=== PATIENT | male | born 1960 | race Caucasian/White ===

== ENCOUNTER 2017-05-02 12:50 | Outpatient (CLI) | payer OTHER ==
--- OUTSIDE RECORDS SUMMARY | 2017-05-02 12:52 | XMS | Clinical Summary ---
:1960 Author Organization [facility] Address [address] [place] [address] Phone Care Team Providers Name Role Phone , Primary Care Provider Unavailable Allergies Not on File Current Medications Not on file Active Problems Not on file Social History Tobacco Use Types Packs/Day Years Used Date Never Assessed Sex Assigned at Date Recorded Not on file Last Filed Vital Signs Not on file Plan of Treatment Not on file Results Not on filefrom Last 3 Months
--- NOTE | 2017-05-02 15:22 | ULT ---
RENAL ULTRASOUND: HISTORY: Bladder cancer. FINDINGS: Real-time images of the right and left kidneys were performed. The right kidney measures 9.9 an the left kidney 10.9 cm in size. No signs of cyst, mass, or obstruction. There is a tiny linear radio paque density seen within the left kidney. It does not shadow and does have the appearance of a sto ne. It may just represent some artifactual finding. I do not see any abnormality on a CT examinati on in this region. The bladder region shows a distended bladder distended to 370 cc. No focal abno rmalities. IMPRESSION: No signs of cyst or mass. No evidence of obstruction of either kidney. POS: [facility]
== END 2017-05-02 12:51 | disposition home or self-care (01) ==
LOC: ULT 12:50
PROVIDERS: ATTEND Urology
DX: C67.0 Malignant neoplasm of trigone of bladder (principal)
CPT/HCPCS: 76770

== ENCOUNTER 2017-05-23 15:33 | Outpatient (CLI) | payer OTHER ==
--- NOTE | 2017-05-23 20:09 | RAD ---
LUMBAR SPINE 05/23/17 Two views obtained. HISTORY: Followup surgery. Congenital spondylolisthesis. COMPARISON: 04/05/17. Pedicle screws again noted transfixing L3, L4 and L5 levels. Disc implant at L4-5 is unchanged in po sition. Posterior alignment is normally maintained. Rah on the left is not connected to the L4 and L 5 pedicle screws. IMPRESSION: No interval change from 04/05/17. POS: [facility]
== END 2017-05-23 15:34 | disposition home or self-care (01) ==
LOC: TBSIIMAG 15:33
PROVIDERS: ATTEND Neurological Surgery
DX: Q76.2 Congenital spondylolisthesis (principal)
CPT/HCPCS: 72100

== ENCOUNTER 2017-06-06 08:30 | Outpatient (CLI) | payer OTHER ==
--- NOTE | 2017-06-06 12:13 | RAD ---
ESOPHOGRAM: History: Dysphagia. FINDINGS: Single column and air contrast barium evaluation of the esophagus shows small sliding hiatal hernia with a large amount of gastroesophageal reflux. Mild tertiary contractions of the esophagus were frankie arent at fluoroscopy. A 12 mm barium tablet traverse the esophagus without holdup. Post-operative ch anges of the cervical spine are apparent without significant effect upon the adjacent esophagus. Fluoro time: 42 seconds. IMPRESSION: Small sliding hiatal hernia. Gastroesophageal reflux with Presby esophagus. POS: [facility]
== END 2017-06-06 08:31 | disposition home or self-care (01) ==
LOC: RAD 08:30
PROVIDERS: ATTEND Nurse Practitioner
DX: R13.10 Dysphagia, unspecified (principal); K21.9 Gastro-esophageal reflux disease without esophagitis; K44.9 Diaphragmatic hernia without obstruction or gangrene
CPT/HCPCS: 74220

== ENCOUNTER 2017-06-19 09:48 | Day surgery (SDC) | payer OTHER ==
[2017-06-13 11:39] VITALS: BMI 29.4
[2017-06-19] MEDS ORDERED: Levofloxacin 500 mg/D5W 100 ml Premix Bag ONE (11:15)
[2017-06-19] MEDS ORDERED: Midazolam HCl 2 mg/2 ml Vial ONE (12:26)
[2017-06-19] MEDS ORDERED: Fentanyl 100 MCG/2 ML VIAL ONE (12:35)
[2017-06-19] MEDS ORDERED: Promethazine HCl 25 MG/ML VIAL ONE (12:36)
[2017-06-19] MEDS ORDERED: SUGAMMADEX SODIUM 200 MG/2 ML VIAL ONE (12:36)
[2017-06-19] MEDS ORDERED: SUGAMMADEX SODIUM 500 MG/5 ML VIAL ONE (12:36)
[2017-06-19] MEDS ORDERED: PHENYLEPHRINE-NS 100 MCG/ML 10 ML SYRINGE ONE (12:55)
[2017-06-19] MEDS ORDERED: Propofol 200 MG/20 ML VIAL ONE (12:55)
[2017-06-19] MEDS ORDERED: ePHEDrine/0.9% NaCl/PF SYRINGE 50 mg/10 ml ONE (12:55)
[2017-06-19] MEDS ORDERED: Ondansetron HCl/PF 4 MG/2 ML Vial ONE (12:55)
[2017-06-19] MEDS ORDERED: Ketorolac Tromethamine 30 MG/ML VIAL ONE (12:55)
[2017-06-19] MEDS ORDERED: Lidocaine 2% MPF 10 ML AMP (For Epidural Use) ONE (12:55)
--- NOTE | 2017-06-19 13:40 | OP ---
DATE OF PROCEDURE: 06/19/2017 SERVICE: Urology. SURGEON: Hari Peterson M.D. PREOPERATIVE DIAGNOSIS: Bladder cancer. POSTOPERATIVE DIAGNOSIS: Bladder cancer. PROCEDURE PERFORMED: Cystoscopy with transurethral resection of bladder tumor less than 2 cm with b ladder biopsy. INDICATIONS FOR PROCEDURE: Mr. Mendoza is a 56-year-old white male who initially came to see me due t o gross hematuria. He had a tumor noted on the ureteral orifice which required resection and ureter al stent placement. He has subsequently healed up from that, but unfortunately he has had a recurre nce of his tumor at a site that was in close proximity to the original tumor. It was not felt that this was the exact recurrence or remnant of the original tumor, but probably a close focal recurrenc e. There was also some additional areas of concern on the bladder wall that had some redness which we elected to biopsy at the same time. Risks and benefits of the surgery were discussed and he agre ed to proceed forward. DESCRIPTION OF PROCEDURE: After identification of arm band verification and consent, the patient wa s brought back to the operating room where he underwent general anesthesia with endotracheal intubat ion. He was then placed in dorsal lithotomy position, prepped and draped in usual sterile fashion. After appropriate timeout, a lubricated 24 Mosotho rigid resectoscope sheath with visual obturator w as passed through the urethra into the bladder. A full cystoscopy was performed and again only the original tumor was noted. The area of concern on the right anterior lateral wall appeared less conc erning under the direct vision scope as opposed to the fiberoptic flexible cystoscope. Nonetheless, we planned to still biopsy this area. The visual obturator was switched out for the bipolar gyrus resectoscope with the thin bladder loop. Resection was carried out on the bladder tumor and the edg es fulgurated. Some residual tumor on the periphery was resected until the entire tumor had been re moved, the edges were all cauterized and the base fulgurated. The tumor was evacuated and sent for routine pathologic evaluation. The resectoscope was then switched out for the working channel adapt or so that a flexible biopsy forceps could be brought in. A biopsy was taken on the one red area on the anterior lateral wall on the right side using the cold cup technique. [facility] The resectoscope was then brought back in and using the coag func tion of the gyrus the biopsy site cauterized. There were no additional parts of the tumor noted wit hin the bladder. The bladder was then emptied and the cystoscope removed. The patient awakened and taken to PACU for recovery in stable condition. COMPLICATIONS: None. ESTIMATED BLOOD LOSS: Minimal. RETAINED TUBES AND DRAINS: None. SPECIMENS: Bladder tumor and bladder biopsy. DISPOSITION: The patient will go to PACU and then once stable, he can be discharged home from [facility]. He will follow up with me on an outpatient basis.
[2017-06-19] MEDS ORDERED: Phenazopyridine HCl 97.5 MG TABLET ONE (13:59)
[2017-06-19] MEDS ORDERED: Oxybutynin 5 MG TAB ONE (13:59)
== END 2017-06-19 15:15 | disposition home or self-care (01) ==
LOC: SDC 09:48
PROVIDERS: ATTEND Urology
PROC: 0TBB8ZX Excision of Bladder, Via Natural or Artificial Opening Endoscopic, Diagnostic (ICD-10-PCS; principal; 2017-06-19)
DX: C67.0 Malignant neoplasm of trigone of bladder (principal); Z98.52 Vasectomy status; Z98.1 Arthrodesis status; Z98.890 Other specified postprocedural states; Z88.5 Allergy status to narcotic agent
CPT/HCPCS: 88305; J1885; J1956; J2001; J2250; J2405; J2550; J2704; J3010

== ENCOUNTER 2017-08-02 13:27 | Outpatient (CLI) | payer OTHER ==
--- NOTE | 2017-08-02 15:29 | RAD ---
CERVICAL SPINE FOUR VIEWS: History: Neck pain. Prior surgery. FINDINGS: Anterior fixation plate and screws remain in place at the C4-5-6-7 levels. No perihardware lucency is evident. Metallic markers associated with interbody fusion material at the post-operative levels are within the confines of the disc spaces. Vertebral body height and alignment are maintained. Cervicot horacic junction is intact. There is prominent calcification of each carotid artery. IMPRESSION: 1. Stable post-operative appearance of the cervical spine. 2. Atherosclerosis. POS: [facility]
--- NOTE | 2017-08-02 15:39 | RAD ---
LUMBAR SPINE TWO VIEWS: History: Lumbar radiculopathy. FINDINGS: Comparison made with exam of 05-23-17. Post op changes of posterior spinal fusion are again seen with bilateral pedicle screws at L3, L4, an d L5 levels and a disc spacer at L4-5 level. Vertical rods are again seen at the L3-4-5 level on the right and L3-4 on the left. Metallic hardware is intact. No fracture, subluxation, or bony destructio n is identified. IMPRESSION: Stable exam. POS: [facility]
== END 2017-08-02 13:28 | disposition home or self-care (01) ==
LOC: TBSIIMAG 13:27
PROVIDERS: ATTEND Neurological Surgery
DX: M54.16 Radiculopathy, lumbar region (principal); M54.2 Cervicalgia; I70.90 Unspecified atherosclerosis
CPT/HCPCS: 72040; 72100

== ENCOUNTER 2017-10-04 08:33 | Outpatient (CLI) | payer OTHER ==
--- NOTE | 2017-10-05 10:38 | RAD ---
MODIFIED BARIUM SWALLOW: Date: 10-04-17 Comparison: None. History: Esophageal reflux NOS, dysphagia of pharyngeal phase, dysphagia unspecified. FINDINGS: A modified barium swallow was performed and provided for interpretation. Images demonstrate no eviden ce of penetration or aspiration. IMPRESSION: No penetration or aspiration noted. POS: [facility]
== END 2017-10-04 08:34 | disposition home or self-care (01) ==
PROVIDERS: ATTEND Otolaryngology Plastic Surgery within the Head & Neck
DX: K21.9 Gastro-esophageal reflux disease without esophagitis (principal); R13.13 Dysphagia, pharyngeal phase
CPT/HCPCS: 74230

== ENCOUNTER 2018-04-25 12:47 | Outpatient (CLI) | payer OTHER ==
--- NOTE | 2018-04-25 16:00 | CT ---
CT OF ABDOMEN AND PELVIS PERFORMED WITH AND WITHOUT CONTRAST ENHANCEMENT: Date: 04/25/18 COMPARISON: 02/14/17 exam. 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 Patient has had immunotherapy. FINDINGS: The lung bases are clear of any infiltrative process. There are some tiny pleural based nodules along the major fissure on the right. These are stable as compared to the prior study. Also, a tiny pleura l based nodular density, axial image 8, in the left lower lobe, is also unchanged. These probably rep resent tiny pleural nodes. Nodular density seen in the right middle lobe, axial image 8, measuring 5- 6 mm in size, is stable. There are other small areas of nodularity seen in the right base. Also, thes e areas all appear unchanged. The liver, spleen, pancreas, and gallbladder regions all appear unremarkable. Right and left adrenal glands, and right and left kidneys are normal in size. There are small periaor tic and aortocaval nodes. Also, there are some small nodes in the gastrohepatic ligament region and a slightly larger node seen within the evelio hepatis region near the junction of the head and body reg ion of the pancreas. This is the largest node. It measures 11.0 mm in short axis dimension, which is a similar measurement to that obtained on the prior study. None of these nodes are pathologically enl arged by size criteria, but somewhat more numerous than typically seen. No bowel wall findings. CT of pelvis was performed with and without contrast enhancement. The appendix is normal. Prostate ca lcifications are seen. There is some air within the bladder, presumably related to some type of instr umentation. There is diffuse bladder wall thickening. There is some fat stranding adjacent to the bl adder. The mass within the right side of the base of the bladder is not visualized on this current st udy. Small pelvic nodes are not definitely significantly enlarged. Postoperative changes of the spine are seen. IMPRESSION: 1. Fairly stable overall examination. 2. Tiny pulmonary nodules, a majority of which are pleural based, the largest of which is 6.0 mm in size in the right middle lobe, all stable as compared to the prior exam. 3. Small, but slightly prominent, lymph nodes in the peripancreatic and evelio regions, and left yecenia aortic change. None of these are pathologically enlarged and appear stable as compared to the prior s tudy. 4. Bladder wall thickening with some fat stranding within the fat adjacent to the bladder. This may be on the sequelae of previous therapy. The bladder mass at the base of the bladder is not definitely visualized on this examination. 5. Small hiatal hernia. POS: [facility]
== END 2018-04-25 12:48 | disposition home or self-care (01) ==
LOC: BICCT 12:47
PROVIDERS: ATTEND Urology
DX: C67.0 Malignant neoplasm of trigone of bladder (principal); R91.8 Other nonspecific abnormal finding of lung field; K44.9 Diaphragmatic hernia without obstruction or gangrene; N32.89 Other specified disorders of bladder
CPT/HCPCS: 74178

== ENCOUNTER 2018-12-17 07:14 | Day surgery (SDC) | payer OTHER ==
[2018-12-16 10:00] VITALS: BMI 30.4
[2018-12-17 08:36] VITALS: BP 124/89; TEMP 97.8
[2018-12-17] MEDS ORDERED: Iopamidol-M 300 61% 15 ML VIAL ONE (08:48)
--- NOTE | 2018-12-17 09:40 | RAD ---
CERVICAL AND THORACIC SPINE MYELOGRAM: HISTORY: Degenerative disc disease of the cervical and thoracic spine. EXPOSURE: 0.6 minutes 474.5 microgray per m2. FINDINGS: Initial two-view assistant professor of chemistry demonstrates an anterior fusion plate with transvertebral body screw at C4, C5 , C6, and C7. Disc prostheses at C4-C5, C5-C6, and C6-C7. Straightening of normal cervical lordosis. No prevertebral soft tissue swelling. On the AP projection, there is facet hypertrophy an d extensive calcification of the carotid arteries. TWO VIEWS LUMBAR SPINE: There are five lumbar type vertebral bodies. Vertebral body height is maintained. No fracture. Eris ateral transpedicular screws at L3, L4, and L5, without perihardware lucency. Vertical stabilization chloé does not appear to be present on the left side at L4-L5. Disc prosthesis at L4-L5. Successful lumbar puncture for intrathecal contrast administration. A total of 9 cc of Isovue-M 300 contrast was administered intrathecally. There were no immediate or post procedure complications. TECHNIQUE: Consent obtained to perform a lumbar puncture for intrathecal contrast administration. The L1-L2 lev el was deemed appropriate. The skin was prepped and draped in a sterile fashion, and 1% Lidocaine, buffered with sodium bicarbonate, was used for local anesthesia. Under fluoroscopic guidance, a 22-g auge spinal needle was advanced into the CSF space. A total of 9 cc of Isovue-M 300 contrast was administered intrathecally. The patient tolerated the procedure well. No immediate or post procedur e complications. IMPRESSION: Successful lumbar puncture for a cervical and thoracic spine myelogram. Transcribed Date/Time: 12/17/2018 10:20 AM
--- NOTE | 2018-12-17 09:55 | CT ---
Exam: Post myelogram cervical spine CT HISTORY:Cervical degenerative disc disease COMPARISON: None FINDINGS: No craniocervical dissociation. Appropriate alignment of the lateral masses of C1 and C2 as well as t he facets. Intact odontoid process. Straightening of normal cervical lordosis Anterior fusion plate with transvertebral body screw at C4, C5, C6 and C7. No. Lucency. Disc prosthes is is at C4-C5, C5-C6 and C6. Visualized soft tissue neck structures are unremarkable. Extensive atherosclerosis of the carotid art eries, incompletely evaluated. C2-C3: Broad-based discussed by complex without significant central canal stenosis. Moderate bilatera l neural foraminal narrowing due to uncovertebral hypertrophy and facet hypertrophy. C3-C4: Broad-based discussed by complex causing mass effect upon the ventral thecal sac. Mild central canal stenosis. Moderate to severe bilateral neural foraminal narrowing due to uncovertebral and facet hypertrophy. C4-C5:Disc prosthesis. Generalized osteophyte ridge without significant central canal stenosis. Bilat eral uncal vertebral hypertrophy and facet hypertrophy result in moderate to severe bilateral neural foraminal narrowing C5-C6: Broad-based disc osteophyte ridge of the right paracentral component. There is flattening of t he ventral thecal sac with the right hemicord. There is mild central canal stenosis. Mild to moderate right and mild left neural foraminal narrowing. C6-C7:Broad-based osteophyte ridge results in mild to moderate central canal stenosis. Moderate bilat eral foraminal narrowing. C7-T1: No significant central canal stenosis. Mild bilateral foraminal narrowing. IMPRESSION: 1. Uncomplicated cervical fusion hardware from C4 through C7 2. Straightening of normal cervical lordosis which may be due to fusion 3. Multilevel degenerative disc disease with varying degrees of central canal stenosis and neural for aminal narrowing as described above. There is moderate to severe neural foraminal narrowing at C3-C4/C5.
--- NOTE | 2018-12-17 10:20 | CT ---
Exam: Post myelogram lumbar spine CT HISTORY: Chronic pain. Conjoined nerve root. Comparison none TECHNIQUE: Post myelogram lumbar spine CT is performed in the axial plane. Reformatted images are sub mitted FINDINGS: Visualized solid organs are unremarkable. Atherosclerosis of a nonaneurysmal aorta. Symmetric attenua tion of the paraspinal muscles Conus medullaris terminates at the mid T12 level T11-T12: No significant central canal stenosis or neural foraminal narrowing T12-L1: No significant central canal stenosis or neural foraminal narrowing L1-L2: No significant central canal stenosis or neural foraminal narrowing L2-L3: Generalized disc bulge, ligament flavum thickening and facet hypertrophy result in moderate to severe canal stenosis. Moderate to severe bilateral neural foraminal narrowing L3-L4: Posterior laminectomy defect. Generalized disc bulge without significant central canal stenosi s. Moderate to severe right and moderate left neural foraminal narrowing L4-L5: There is a disc prosthesis. There are laminectomy defects. There is abnormal hypoattenuation i n the right subarticular zone. No significant central canal stenosis. Moderate right and cujc-ni-qiyouict left neural foraminal narrowing. L5-S1: No high-grade central canal stenosis. Moderate bilateral neural foraminal narrowing IMPRESSION: 1. Lumbar fusion from L3 through L5 as described above. No. Hardware lucency. 2. Moderate to severe right and moderate left neural foraminal narrowing at L3-L4. 3. Moderate to severe central canal stenosis at L2-L3.
== END 2018-12-17 10:15 | disposition home or self-care (01) ==
LOC: RAD 07:14 → EDSTATUS 08:00 → RAD 10:15
PROVIDERS: ATTEND Neurological Surgery
PROC: B01B1ZZ Fluoroscopy of Spinal Cord using Low Osmolar Contrast (ICD-10-PCS; principal; 2018-12-17)
DX: M50.30 Other cervical disc degeneration, unspecified cervical region (principal); M51.36 Other intervertebral disc degeneration, lumbar region; Z79.899 Other long term (current) drug therapy; Z87.891 Personal history of nicotine dependence; Z88.5 Allergy status to narcotic agent; Z88.8 Allergy status to other drugs, medicaments and biological substances
CPT/HCPCS: 62305; 72126; 72132; Q9967

== ENCOUNTER 2019-05-12 08:24 | Inpatient (IN) | payer OTHER ==
[2019-05-09 13:12] VITALS: BMI 29.2
[2019-05-12 09:51] LABS: #Basophils 0.1 thou/uL (0.0-0.2); #Eosinphils 0.3 thou/uL (0.0-0.7); #Lymphocytes 2.4 thou/uL (1.20-3.40); #Monocytes 0.5 thou/uL (0.11-0.59); #Neutrophils 2.9 thou/uL (1.40-6.50); %Basophils 1.2 % (0.0-1.0); %Eosinophils 5.4 % (0.0-10.0); %Monocytes 8.5 % (0.0-10.0); Hemoglobin 11.3 g/dL (14.0-18.0); Mean Corpuscular HGB CONC 34.6 g/dL (32.0-36.0); Mean Corpuscular Hemoglobin 30.1 pg (27.0-31.0); Mean Corpuscular Volume 86.9 fL (78.0-98.0); Mean Platelet Volume 8.3 fL (7.4-10.4); Platelet Count 218 thou/uL (130-400); RBC Distribution Width 12.1 % (11.5-14.5); Red Blood Cell (RBC) Count 3.75 mill/uL (4.70-6.10); White Blood Cell (WBC) Count 6.3 thou/uL (4.8-10.8)
[2019-05-12 10:13] LABS: Anion Gap 12 mmol/L (10-20); BUN (Urea Nitrogen) 19 mg/dL (8.4-25.7); Calc. Creatinine Clearance 125 mL/min (70-130); Calcium 8.8 mg/dL (7.8-10.44); Carbon Dioxide 22 mmol/L (22-29); Chloride 111 mmol/L (98-107); Estimated GFR-MDRD 89; Glucose 110 mg/dL (70-105); Potassium 4.1 mmol/L (3.5-5.1); Sodium 141 mmol/L (136-145)
[2019-05-12] MEDS ORDERED: Sodium Chloride 0.9% 10 ML ONE (10:45)
[2019-05-12] MEDS ORDERED: Fentanyl 100 MCG/2 ML VIAL ONE ×2 (11:44→13:10)
[2019-05-12] MEDS ORDERED: Ondansetron PF 4 MG/2 ML Vial ONE (12:29)
[2019-05-12] MEDS ORDERED: PROPOFOL 200 MG/20 ML VIAL ONE (12:29)
[2019-05-12] MEDS ORDERED: Dexamethasone 20 MG/5 ML VIAL ONE (12:29)
[2019-05-12] MEDS ORDERED: PHENYLEPHRINE-NS 100 MCG/ML 10 ML SYRINGE ONE (12:29)
[2019-05-12] MEDS ORDERED: Lidocaine 1% PF 5 ML VIAL ONE (12:29)
[2019-05-12] MEDS ORDERED: Glycopyrrolate 0.2 MG/ML 5 ML SYRINGE ONE (12:29)
[2019-05-12] MEDS ORDERED: Rocuronium Bromide 10 MG/ML (10ML VIAL) ONE (12:29)
[2019-05-12] MEDS ORDERED: Ondansetron HCl/PF 4 MG/2 ML Vial IVP PRN (12:59)
[2019-05-12] MEDS ORDERED: Promethazine HCl 25 MG/ML VIAL SLOW IVP PRN (12:59)
[2019-05-12] MEDS ORDERED: Promethazine HCl 25 MG/ML VIAL IM PRN ×2 (12:59→13:09)
[2019-05-12] MEDS ORDERED: Milk Of Magnesia 30 ML UDCUP PO PRN (13:09)
[2019-05-12] MEDS ORDERED: diphenhydrAMINE 50 MG/ML VIAL IVP PRN (13:09)
[2019-05-12] MEDS ORDERED: traMADol HCl 50 MG TAB PO PRN (13:09)
[2019-05-12] MEDS ORDERED: Acetaminophen 650 MG Suppository PR PRN (13:09)
[2019-05-12] MEDS ORDERED: Ondansetron PF 4 MG/2 ML Vial IM PRN (13:09)
[2019-05-12] MEDS ORDERED: Promethazine HCl 12.5 MG SUPP PR PRN (13:09)
[2019-05-12] MEDS ORDERED: diphenhydrAMINE 25 MG CAP PO PRN (13:09)
[2019-05-12] MEDS ORDERED: Mag-Al 1200 mg/1200 mg/30 ML UDCUP PO PRN (13:09)
[2019-05-12] MEDS ORDERED: Promethazine 25 MG TAB PO PRN (13:09)
[2019-05-12] MEDS ORDERED: Morphine 4 MG/ML VIAL SLOW IVP PRN (13:09)
[2019-05-12] MEDS ORDERED: Morphine 2 MG/ML SYRINGE SLOW IVP PRN (13:11)
--- NOTE | 2019-05-12 14:17 | OP ---
DATE OF PROCEDURE: 05/12/2019 BLUEPRINT CLERK: Gumaro Bauer PA-C PROCEDURES PERFORMED: Exploration of spinal fusion L3 through L5, removal of hardware L3 through L5, L2-L3 laminectomy, posterolateral arthrodesis L2-L3, pedicle screw instrumentation L2-L3, and demineralized bone matrix local morselized autograft. DESCRIPTION OF PROCEDURE: The patient was brought to the operating room and intubated. He was rolled in a prone position on gel-filled chest rolls. An incision was made exposing previous hardware as well as the L2 level and the level was confirmed by x-ray. We removed the previous rods and securing nuts between L3 and L5. We explored the fusion and seemed to be solid. We next performed complete remainder of L3 and inferior L2 laminectomies, completely decompressing L2-L3 interspace. We then placed pedicle screws at L2 bilaterally using lateral fluoroscopic guidance. The chloé was secured between the new L2 screws and the old L3 screws connected by nuts, which were final tightened. The wound was extensively irrigated. MAC hemostasis was secured. A combination of demineralized bone matrix, local morselized autograft was laid over the lamina and posterolateral surfaces for the purpose of arthrodesis. Vancomycin powder was applied and the wound was then closed in anatomic layers. Job ID: [id number]
[2019-05-12] MEDS ORDERED: Ondansetron PF 4 MG/2 ML Vial SLOW IVP PRN (14:23)
[2019-05-12] MEDS ORDERED: Tamsulosin HCl 0.4 MG CAP PO SCH (15:30)
--- NOTE | 2019-05-12 15:51 | CON ---
DATE OF CONSULTATION: Consultation to Dr. Jaxson Carrillo. PRIMARY CARE PROVIDER: Arsh De La Paz in [place]. HISTORY OF PRESENT ILLNESS: The patient is postop lumbar laminectomy. He is awake, alert, states he is a little sore but feeling well. No fever or chills. No nausea. No vomiting. No chest pain or shortness of breath. PAST MEDICAL HISTORY: Hypertension, elevated cholesterol, hypothyroidism, gastroesophageal reflux disease. CURRENT MEDICATIONS: 1. Tizanidine 4 mg p.o. as directed. 2. Ultram 50 mg p.o. q.6 hours p.r.n. 3. Meloxicam 15 mg a day. 4. Singulair 20 mg a day. 5. Zetia 10 mg at bedtime. 6. Amlodipine 10 mg at bedtime. 7. Dexilant one tab at bedtime. 8. Levothyroxine 100 mcg a day. 9. Librax one cap p.o. t.i.d. 10. Gabapentin 800 mg p.o. at bedtime. ALLERGIES: TO CODEINE, HYDROCODONE, STATINS. PAST SURGICAL HISTORY: Bladder cancer 2 years ago, treated with resection and BCG. Followup has been negative. He has had C-spine surgery x2. He had L-spine surgery x3. 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 FAMILY HISTORY: Mother has hypertension. Mother had a CVA and bladder cancer. SOCIAL HISTORY: . Full code status. , next of kin. He quit smoking in January 2017. He drinks occasional mixed drink and occasionally he drinks two a day. REVIEW OF SYSTEMS: GENERAL: No headaches, dizziness or fainting. EYES: Blind in the left eye, prosthetic left eye. No flashing lights and blurring in the right eye. EAR, NOSE, AND THROAT: No ear pain or drainage. No nasal bleeding. No trouble swallowing. CARDIAC: No chest pain, orthopnea, or paroxysmal nocturnal dyspnea. RESPIRATION: No cough, wheezing or asthma. GASTROINTESTINAL: No nausea, vomiting, diarrhea, or constipation. GENITOURINARY: No hematuria or dysuria. MUSCULOSKELETAL: Prior to surgery, he had pains in his right hip going into his leg, currently it has resolved. No pain or swelling in the muscles or joints at this time. PSYCHIATRIC: No anxiety or depression. NEUROLOGIC: No strokes, seizures, or focal weakness. SKIN: No bruising, bleeding, or rash. HEME/LYMPH: No tender or swollen lymph nodes in the axilla, inguinal, or cervical area. PHYSICAL EXAMINATION: GENERAL: He is alert, oriented, cooperative, pleasant. at bedside. VITAL SIGNS: Blood pressure 130/90, pulse 90, respirations 16, temperature 98. HEAD, EYES, EARS, NOSE, THROAT: Reveals his right pupil to be reactive. Extraocular movements full. Sclerae are white. Left eye is a prosthesis. Tympanic membranes clear. Nose clear. Oral mucous membranes are wet. Dental hygiene is good. Nasal mucosa is clear. NECK: No jugular venous distention, adenopathy or thyromegaly. CHEST: Clear to auscultation and percussion. HEART: Regular rate and rhythm. First and second heart sounds are clear. There are no appreciated murmurs or gallops. ABDOMEN: Soft. Bowel sounds are normal. There is no hepatosplenomegaly. No mass. No rebound. No bruits. EXTREMITIES: No cyanosis, clubbing, or edema. PULSES: Carotid, radial, and femoral and dorsalis pedis pulses intact. SKIN: Warm and dry without bruises or rash. HEME/LYMPH: No tender or swollen lymph nodes in the axilla, inguinal, or cervical area. NEUROLOGIC: Cranial nerves 2 through 12 are intact. Deep tendon reflexes symmetric. Moves all extremities. DIAGNOSTIC IMAGING: EKG normal, reviewed by me. Radiology, no reports. LABORATORY DATA: Basic metabolic profile abnormalities chloride 111, glucose 110. CBC abnormalities, hemoglobin 11.3. ADMITTING DIAGNOSES: 1. Status post lumbar laminectomy. 2. Hypertension. 3. Dyslipidemia. 4. Hypothyroidism. 5. Gastroesophageal reflux disease. Thank you for the consult. We will follow closely with you. Job ID: [id number]
[2019-05-12] MEDS: Sodium Chloride 0.9% 1,000 ML IV SCH (16:19)
[2019-05-12] MEDS: tiZANidine HCl 4 MG TAB PO PRN (17:17)
[2019-05-12] MEDS: traMADol HCl 50 MG TAB PO PRN (17:18)
[2019-05-12] MEDS: Acetaminophen 325 MG TAB PO PRN ×2 (17:18→23:21)
[2019-05-12] MEDS: Ketorolac Tromethamine 30 MG/ML VIAL IVP SCH ×2 (17:36→23:21)
[2019-05-12] MEDS: CEFAZOLIN 2 GM in Premix Bag 1 BAG IVPB SCH (17:37)
[2019-05-13] MEDS: CEFAZOLIN 2 GM in Premix Bag 1 BAG IVPB SCH (01:50)
[2019-05-13] MEDS: Sodium Chloride 0.9% 1,000 ML IV SCH (01:53)
[2019-05-13] MEDS: tiZANidine HCl 4 MG TAB PO PRN ×2 (01:56→11:05)
[2019-05-13] MEDS: traMADol HCl 50 MG TAB PO PRN ×2 (01:57→11:05)
[2019-05-13] MEDS: Ketorolac Tromethamine 30 MG/ML VIAL IVP SCH (05:37)
[2019-05-13] MEDS: Acetaminophen 325 MG TAB PO PRN ×2 (05:37→11:05)
[2019-05-13] MEDS ORDERED: Tamsulosin HCl 0.4 MG CAP PO SCH (06:00)
[2019-05-13 08:21] VITALS: BP 111/66; TEMP 97.6
--- NOTE | 2019-05-13 08:54 | DIS ---
DATE OF ADMISSION: 05/12/2019 DATE OF DISCHARGE: 05/13/2019 HOSPITAL COURSE: The patient is a 58-year-old male, who was recently seen in our office for progressive back and bilateral leg pain with neurogenic claudication. He was found to have significant stenosis at the level above his prior fusion and underwent L2-L3 decompression and extension of fusion. Following the surgery, he was transitioned to the Med/Surg floor, where his pain has been well-controlled with p.o. medications, he has been tolerating a regular diet, and he has been voiding appropriately. He has been ambulating easily throughout the hallways. He did have a ARLENE drain placed intraoperatively, which had 25 mL out over the first night. OBJECTIVE: On exam this morning, he is awake, alert, in no acute distress. He has free active range of motion of all extremities. No focal motor weakness. His incision is clean, dry, and intact. There is a small amount of red blood in the ARLENE bulb. PLAN: We will plan to dismiss the patient to home once the ARLENE bulb is removed. I have discussed home care precautions. We will follow up with the patient in 2 weeks. He has been provided with scripts for tramadol, Zanaflex, and Keflex. Job ID: [id number]
[2019-05-13] MEDS ORDERED: FLU VACC QS2019-20(6MOS UP)/PF 60 MCG/0.5 ML SYRINGE IM ONE (15:15)
== END 2019-05-13 11:19 | disposition home or self-care (01) | DRG 460 ==
LOC: SURG A 08:24 → SURG B 13:46
PROVIDERS: ADMIT Neurological Surgery; ATTEND Neurological Surgery
PROC: 0QP004Z Removal of Internal Fixation Device from Lumbar Vertebra, Open Approach (ICD-10-PCS; principal; 2019-05-12)
PROC: 0SG0071 Fusion of Lumbar Vertebral Joint with Autologous Tissue Substitute, Posterior Approach, Posterior Column, Open Approach (ICD-10-PCS; 2019-05-12)
DX: M48.062 Spinal stenosis, lumbar region with neurogenic claudication (principal); M47.26 Other spondylosis with radiculopathy, lumbar region; I10 Essential (primary) hypertension; E03.9 Hypothyroidism, unspecified; K21.9 Gastro-esophageal reflux disease without esophagitis; Z79.899 Other long term (current) drug therapy; Z88.5 Allergy status to narcotic agent; Z88.8 Allergy status to other drugs, medicaments and biological substances; Z85.51 Personal history of malignant neoplasm of bladder; Z87.891 Personal history of nicotine dependence
CPT/HCPCS: 76000; 80048; 85025; 93005; 93010; C1713; C1768; J0131; J0690; J1100; J1885; J2001; J2270; J2405; J2704; J3010; J3370; J3490

== ENCOUNTER 2019-06-03 16:11 | Outpatient (CLI) | payer OTHER ==
--- NOTE | 2019-06-03 16:29 | RAD ---
Exam: 2 views lumbar spine COMPARISON: 08/02/2017 HISTORY: Status post fusion surgery 3 weeks ago FINDINGS: Bilateral transpedicular screws at L2, L3, L4 and L5. On the lateral projection, there is n o significant spondylolisthesis.. Hypertrophy of the posterior elements likely due to bone graft material. Disc prosthesis at L4-L5. IMPRESSION: Uncomplicated lumbar fusion.
== END 2019-06-03 16:12 | disposition home or self-care (01) ==
LOC: TBSIIMAG 16:11
PROVIDERS: ATTEND Neurological Surgery
DX: Q76.2 Congenital spondylolisthesis (principal); Z98.1 Arthrodesis status
CPT/HCPCS: 72100

== ENCOUNTER 2019-07-15 15:31 | Outpatient (CLI) | payer OTHER ==
--- NOTE | 2019-07-15 15:53 | RAD ---
TWO VIEWS OF THE LUMBOSACRAL SPINE: 07/15/19 HISTORY: Congenital spondylolisthesis. FINDINGS: Two views of the lumbosacral spine shows the patient to be status post fusion of L2 through L5 with b ilateral pedicle screws. The vertebral bodies demonstrate normal alignment without subluxation. Moder ate posterior facet arthrosis is seen in the lower lumbosacral spine. No perihardware lucency is seen . IMPRESSION: Stable postsurgical changes of the lumbar spine. POS: [facility]
== END 2019-07-15 15:32 | disposition home or self-care (01) ==
LOC: BICRAD 15:31
PROVIDERS: ATTEND Neurological Surgery
DX: Q76.2 Congenital spondylolisthesis (principal); Z98.1 Arthrodesis status
CPT/HCPCS: 72100

== ENCOUNTER 2019-08-16 18:31 | Inpatient (IN) | payer OTHER ==
[2019-08-16] MEDS ORDERED: Ondansetron PF 4 MG/2 ML Vial ONE (19:12)
[2019-08-16] MEDS ORDERED: Midazolam HCl 2 mg/2 ml Vial ONE (19:29)
[2019-08-16] MEDS ORDERED: Benzocaine 20% Spray 60 ML CAN ONE (19:31)
[2019-08-16] MEDS ORDERED: Oxymetazoline HCl 0.05% (30 ML BOT) ONE (19:31)
--- NOTE | 2019-08-16 20:08 | RAD ---
KUB INDICATION: NG tube confirmation COMPARISON: None FINDINGS: Bowel gas: There are mildly prominent gas-filled loops of small bowel within the upper abdomen. Gas i s present within loops of colon as well as the stomach. Gastric catheter projects in the region of the gastric body. Lung bases: Clear. Additional findings: No suspicious calcification demonstrated. Osseous structures: There is scattered degenerative and osteoarthritic change present. There is poste rior lateral spinal instrumentation involving the mid to lower lumbar spine. IMPRESSION: 1. Gastric catheter as above. Mildly prominent gas-filled loops of small bowel.
[2019-08-16] MEDS ORDERED: hydrALAZINE 20 MG/ML VIAL SLOW IVP PRN (21:17)
[2019-08-16] MEDS ORDERED: Morphine 4 MG/ML VIAL SLOW IVP PRN (21:18)
[2019-08-16] MEDS ORDERED: Ondansetron PF 4 MG/2 ML Vial IVP PRN (21:18)
[2019-08-16] MEDS ORDERED: Ondansetron ODT 4 MG TAB PO PRN (21:18)
[2019-08-16] MEDS ORDERED: Ketorolac Tromethamine 30 MG/ML VIAL IVP PRN (21:18)
[2019-08-16] MEDS ORDERED: Sodium Chloride 0.9% (PF) 10 ML VIAL FS PRN (21:19)
[2019-08-16] MEDS: Sodium Chloride 0.9% 1,000 ML IV SCH (21:51)
[2019-08-16 22:25] VITALS: BMI 30.7
[2019-08-17 05:13] LABS: #Basophils 0.1 thou/uL (0.0-0.2); #Eosinphils 0.1 thou/uL (0.0-0.7); #Lymphocytes 2.8 thou/uL (1.20-3.40); #Monocytes 0.8 thou/uL (0.11-0.59); #Neutrophils 6.5 thou/uL (1.40-6.50); %Basophils 0.8 % (0.0-1.0); %Eosinophils 1.3 % (0.0-10.0); %Lymphocytes 27.1 % (21.0-51.0); %Monocytes 7.8 % (0.0-10.0); Mean Corpuscular HGB CONC 32.9 g/dL (32.0-36.0); Mean Corpuscular Hemoglobin 28.7 pg (27.0-31.0); Mean Corpuscular Volume 87.2 fL (78.0-98.0); Mean Platelet Volume 8.7 fL (7.4-10.4); Platelet Count 275 thou/uL (130-400); RBC Distribution Width 12.5 % (11.5-14.5); Red Blood Cell (RBC) Count 4.51 mill/uL (4.70-6.10); White Blood Cell (WBC) Count 10.3 thou/uL (4.8-10.8)
[2019-08-17 05:33] LABS: Anion Gap 13 mmol/L (10-20); BUN (Urea Nitrogen) 16 mg/dL (8.4-25.7); Calc. Creatinine Clearance 131 mL/min (70-130); Calcium 8.8 mg/dL (7.8-10.44); Carbon Dioxide 25 mmol/L (22-29); Chloride 106 mmol/L (98-107); Estimated GFR-MDRD 89; Glucose 113 mg/dL (70-105); Potassium 3.6 mmol/L (3.5-5.1); Sodium 140 mmol/L (136-145)
[2019-08-17] MEDS: Sodium Chloride 0.9% 1,000 ML IV SCH ×2 (07:36→11:16)
[2019-08-17] MEDS ORDERED: Pantoprazole 40 MG VIAL IVP SCH (09:00)
[2019-08-17] MEDS ORDERED: MD-Gastroview 120 ML BOT ONE (11:31)
--- NOTE | 2019-08-17 12:05 | RAD ---
GASTROGRAFIN SMALL BOWEL STUDY: HISTORY: Small bowel obstruction. FINDINGS: Initial skidder operator radiograph of the abdomen demonstrates a nasogastric tube in the epigastric region. Air -filled loops of small bowel are identified. Decompressed colon with fecal material and air. Lumbar fusion hardware is noted. Contrast opacifies slightly prominent proximal and mid small bowel loops on the immediate, 45 minute and 1 hour images. On the 2 hour images, contrast does opacify the right hemicolon and proximal descending colon. IMPRESSION: No evidence of high-grade obstruction. Transcribed Date/Time: 08/17/2019 12:37 PM
[2019-08-17] MEDS ORDERED: Acetaminophen 500 MG TAB PO PRN (12:10)
[2019-08-17] MEDS ORDERED: Meloxicam 15 MG TAB PO PRN (12:10)
[2019-08-17] MEDS ORDERED: traMADol HCl 50 MG TAB PO PRN ×2 (12:10)
[2019-08-17] MEDS ORDERED: Montelukast Sodium 10 mg Tablet PO PRN (12:10)
[2019-08-17] MEDS ORDERED: tiZANidine HCl 4 MG TAB PO PRN (12:10)
[2019-08-17 12:14] VITALS: BP 169/93; TEMP 98.3
[2019-08-17] MEDS ORDERED: FLU VACC QS2019-20(6MOS UP)/PF 60 MCG/0.5 ML SYRINGE IM ONE (21:00)
[2019-08-17] MEDS ORDERED: Prevnar 13-Val Conj/PF 0.5 ML SYRINGE IM ONE (21:00)
[2019-08-17] MEDS ORDERED: Amlodipine 10 MG TAB PO SCH (21:00)
[2019-08-17] MEDS ORDERED: chlordiazePOXIDE/Clidinium Bromide Capsule PO SCH (21:00)
[2019-08-17] MEDS ORDERED: Ezetimibe 10 MG TAB PO SCH (21:00)
[2019-08-17] MEDS ORDERED: Gabapentin 400 MG CAP PO SCH (21:00)
--- NOTE | 2019-08-18 03:57 | DIS ---
DATE OF ADMISSION: 08/16/2019 DATE OF DISCHARGE: 08/17/2019 DISCHARGE DIAGNOSES: 1. Abdominal pain, distention, possible bowel obstruction . Radiologically, [place] CAT scan suggested a bowel obstruction partial with a transition zone, prior history of umbilical hernia repair at 7 years of age, otherwise, no other abdominal surgeries. 2. Hypertension. 3. History of bladder tumor, transurethral resection by Dr. Peterson. 4. Cervical lumbar surgery, Dr. Km Carrillo. 5. Colonoscopy by Dr. العلي 2-3 years ago and a year ago, Dr. Corbett at [facility]. PROCEDURES: In this hospitalization, small-bowel follow-through normal. DISCHARGE MEDICATIONS: None. Resume home medications. HISTORY: A 58-year-old male with prior history in March and now, on this occasion of abdominal distention, pain, both treated nonoperatively. On this occasion, Gastrografin small bowel follow-through normal transit without obstruction. The patient is discharged home with recommendations to follow up with Gastroenterology. Job ID: [id number]
[2019-08-18] MEDS ORDERED: Levothyroxine Sodium 100 MCG TAB PO SCH (06:00)
[2019-08-18] MEDS ORDERED: Losartan/Hydrochlorothiazide 100 mg/25 mg Tablet PO SCH (09:00)
--- NOTE | 2019-08-18 09:38 | HP ---
HISTORY OF PRESENT ILLNESS: Mal Mendoza is a 58-year-old male from [place] who in March had a similar episode as he presents on this occasion. Yesterday morning, he experienced abdominal distention, cramps, nausea, vomiting, seen in [place], transferred to this facility with a CAT scan suggesting a bowel obstruction. NG tube was placed in our emergency room. Gastric drainage 350 mL overnight. The patient underwent a small bowel follow-through this morning. Gastrografin administered per NG tube with transit time within 1 hour to 2 hours to the right colon since he has had at least 5-6 bowel movements. The patient reports that Dr. العلي performed a colonoscopy on him 2-3 years ago and then a year ago Dr. Corbett at [facility] did a colonoscopy all of which were normal. He thinks may be a polyp was removed and he cannot recall whether he is instructed to come back within three or five years for a repeat colonoscopy. He was having occasional diarrhea. He reports occasional diarrhea between episodes described March and this occasion, but otherwise good bowel function. [place] CAT scan is reported to demonstrate a small bowel obstruction with transition point. CAT scan reportedly did not show any other abnormalities and that report is not available to me. Images are not available. The patient by the time of this dictation is pain free and abdomen is baseline. ALLERGIES: CODEINE, HYDROCODONE, STATINS. SOCIAL HISTORY: Tobacco none. Alcohol none. MEDICATIONS: At home, acetaminophen, amlodipine, Dexilant, Zetia, meloxicam, losartan, levothyroxine, gabapentin, Librax, Singulair, Zanaflex, Ultram, tramadol. PAST SURGICAL HISTORY: Umbilical hernia repair as a child. Dr. Carrillo has performed cervical and lumbar surgery on him. Dr. Peterson has done a transurethral resection of a bladder tumor last year. As noted above he is up to date on colonoscopies. REVIEW OF SYSTEMS: Ten-point noncontributory. 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 PHYSICAL EXAMINATION: VITAL SIGNS: 5 foot 11 inches, 220 pounds, 30 BMI, 98.3, 84, 169/83. HEAD, EARS, EYES, NOSE AND THROAT: Unremarkable. LUNGS: Clear to auscultation. CARDIAC: Rhythm without murmur or gallop. ABDOMEN: Soft, nontender, slightly protuberant, but nondistended, non tympanitic. EXTREMITIES: Unremarkable. NEUROLOGICAL: Intact. No deficits. LYMPH NODES: No lymphadenopathy in neck, axilla, groins. No groin hernias, umbilical hernia. LABORATORY DATA: White count 10, hemoglobin 13. Basic metabolic profile is normal. Glucose 113. ASSESSMENT/PLAN: 1. Abdominal distention of uncertain etiology, gastroenteritis versus some other etiology. He does not have a prior surgical history to suggest an adhesive process although umbilical hernia repair as a child could precipitate such a mechanical obstruction. He, however, does not have a bowel obstruction at this time and if he tolerates his diet he can be discharged home with followup as needed. I would recommend he see gastrologist and get him Dr. Cortes welch or [facility] to followup to consider further evaluation of his occasional complaints of diarrhea and these 2 episodes March and on this occasion of bowel obstruction radiologically. Camera endoscopy could be considered. 2. Hypertension. 3. Chronic back pain, followed by Dr. Estrada. 4. Transurethral section of the bladder cancer by Dr. Peterson. At this point, he will be discharged home today and follow up as needed and follow up with GI as recommended. Job ID: [id number]
[2019-08-22] MEDS ORDERED: Meloxicam 15 MG TAB PO PRN (21:00)
== END 2019-08-17 15:57 | disposition home or self-care (01) | DRG 390 ==
LOC: ERS 18:31 → SJJU 20:41
PROVIDERS: ADMIT Specialist; ATTEND Specialist
DX: K56.600 Partial intestinal obstruction, unspecified as to cause (principal); E03.9 Hypothyroidism, unspecified; I10 Essential (primary) hypertension; M54.9 Dorsalgia, unspecified; G89.29 Other chronic pain; E78.5 Hyperlipidemia, unspecified; Z88.5 Allergy status to narcotic agent; Z88.8 Allergy status to other drugs, medicaments and biological substances; Z79.899 Other long term (current) drug therapy; Z79.890 Hormone replacement therapy
CPT/HCPCS: 36415; 74018; 74250; 80048; 85025; 93005; 94760; 96361; 96374; 96375; C9113; J1885; J2250; J2270; J2405; Q9963

== ENCOUNTER 2019-09-17 11:37 | Outpatient (CLI) | payer OTHER ==
--- NOTE | 2019-09-17 13:10 | CT ---
CT Abdomen Pelvis W WO con: 09/17/2019 12:00 AM CLINICAL INFORMATION: Irritable bowel syndrome, reflux, history of bladder cancer COMPARISON: None. TECHNIQUE: Multiple contiguous axial images were obtained and a CT of the abdomen and pelvis without and with IV contrast. Negative oral contrast was administered. Coronal and sagittal reformats were performed. FINDINGS: Lower Chest: within normal limits. Abdomen: Liver: within normal limits. Bile Ducts: Normal caliber. Gallbladder: No calcified gallstones. Normal caliber wall. Pancreas: within normal limits. Spleen: within normal limits. Adrenals: within normal limits. Kidneys: within normal limits. No renal calculi. Pelvis: Reproductive Organs: No pelvic masses. Ureters: within normal limits. Bladder: within normal limits. Peritoneum: No ascites or free air, no fluid collection. Bowel: Normal caliber. Normal appendix. No wall thickening of the terminal ileum. Mesentery and Retroperitoneum: No enlarged mesenteric or retroperitoneal lymph nodes. Vessels: Atherosclerotic calcifications. Abdominal Wall: Vasectomy clips within the scrotum. Bones: Degenerative changes and postsurgical changes in the spine. IMPRESSION: No evidence of acute intraabdominal or pelvic abnormality.
[2019-09-17] MEDS ORDERED: Iopamidol 370 76% 100 ML VIAL ONE (16:08)
== END 2019-09-17 11:38 | disposition home or self-care (01) ==
LOC: CT 11:37
PROVIDERS: ATTEND Internal Medicine Gastroenterology
DX: K58.9 Irritable bowel syndrome, unspecified (principal); K56.609 Unspecified intestinal obstruction, unspecified as to partial versus complete obstruction; K64.9 Unspecified hemorrhoids; K21.9 Gastro-esophageal reflux disease without esophagitis; R93.5 Abnormal findings on diagnostic imaging of other abdominal regions, including retroperitoneum
CPT/HCPCS: 74178; Q9967

== ENCOUNTER 2019-10-08 07:47 | Outpatient (CLI) | payer OTHER ==
[2019-10-08 17:04] LABS: #Basophils 0.1 thou/uL (0.0-0.2); #Eosinphils 0.3 thou/uL (0.0-0.7); #Lymphocytes 2.5 thou/uL (1.20-3.40); #Monocytes 0.6 thou/uL (0.11-0.59); #Neutrophils 4.3 thou/uL (1.40-6.50); %Eosinophils 4.3 % (0.0-10.0); %Monocytes 7.4 % (0.0-10.0); %Neutrophils 55.3 % (42.0-75.0); Hemoglobin 12.7 g/dL (14.0-18.0); Mean Corpuscular HGB CONC 34.2 g/dL (32.0-36.0); Mean Corpuscular Hemoglobin 29.8 pg (27.0-31.0); Mean Corpuscular Volume 87.2 fL (78.0-98.0); Mean Platelet Volume 10.7 fL (7.4-10.4); Platelet Count 162 thou/uL (130-400); RBC Distribution Width 12.6 % (11.5-14.5); Red Blood Cell (RBC) Count 4.27 mill/uL (4.70-6.10); White Blood Cell (WBC) Count 7.7 thou/uL (4.8-10.8)
[2019-10-08 17:06] LABS: PTT 26.2 SEC (22.9-36.1)
[2019-10-08 17:07] LABS: Prothrombin Time 12.9 SEC (12.0-14.7)
[2019-10-08 17:15] LABS: Bacteria/HPF None Seen HPF (None Seen); Bilirubin Negative (Negative); Blood, Urine Negative (Negative); Clarity Clear (Clear); Glucose, Urine (Dipstick) Normal (Negative); Leukocyte Negative Leu/uL (Negative); Nitrite Negative (Negative); Protein, Urine (Dipstick) Negative (Neg-Trace); RBC/HPF 0-3 HPF (0-3); Squamous Epithelial 0-3 HPF (0-3); Urobilinogen Normal mg/dL (Less than 2); WBC/HPF None Seen HPF (0-3)
[2019-10-08 17:31] LABS: Anion Gap 13 mmol/L (10-20); BUN (Urea Nitrogen) 15 mg/dL (8.4-25.7); Calc. Creatinine Clearance 0 mL/min (70-130); Calcium 9.2 mg/dL (7.8-10.44); Carbon Dioxide 24 mmol/L (22-29); Chloride 108 mmol/L (98-107); Estimated GFR-MDRD Greater than 90; Glucose 86 mg/dL (70-105); Potassium 3.9 mmol/L (3.5-5.1); Sodium 141 mmol/L (136-145)
== END 2019-10-08 07:48 | disposition home or self-care (01) ==
LOC: LABBT 07:47
PROVIDERS: ATTEND Urology
DX: Z01.818 Encounter for other preprocedural examination (principal); N40.1 Benign prostatic hyperplasia with lower urinary tract symptoms
CPT/HCPCS: 80048; 81001; 85025; 85610; 85730; 87086; 93005; 93010

== ENCOUNTER 2019-10-17 06:06 | Day surgery (SDC) | payer OTHER ==
--- NOTE | 2019-10-06 08:44 | HP ---
HISTORY OF PRESENT ILLNESS: Mal Mendoza is a 58-year-old male from [place], who has had a long history of hemorrhoids. I have examined him in the office. He has a large posterior hemorrhoidal tag which we will excise. Internal hemorrhoids present on anoscopy. Plan is for PPH stapled hemorrhoidectomy after discussion of treatment options. He has had a previous open hemorrhoidectomy 20 years ago. He remembers how difficult that was to recover, but his hemorrhoids are bothersome to him enough at this point that he desires the above-named procedure. The patient has seen Dr. Peterson for a prostate lift, and these two operations will be performed under same anesthesia. He will undergo a bowel prep prior to my procedure. He understands risks and benefits, and consents. The patient had a colonoscopy a year ago that was essentially normal. PAST MEDICAL HISTORY: Chronic back pain. Sees Dr. Peterson for hematuria. PAST SURGICAL HISTORY: 1. Umbilical hernia repair as a child. 2. Dr. Carrillo has performed cervical and lumbar surgery. 3. 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 Peterson has done a TURBT last year. MEDICATIONS: 1. Montelukast. 2. Dexilant. 3. Librax. SOCIAL HISTORY: Tobacco, a pack a day. Alcohol, 3 to 4 drinks a day. PHYSICAL EXAMINATION: VITAL SIGNS: 235 pounds, 71 inches, 32 BMI, blood pressure 118/50, pulse 74, and temperature 97 degrees. HEAD, EARS, EYES, NOSE AND THROAT: Unremarkable. LUNGS: Clear to auscultation. CARDIAC: Rhythm without murmur or gallop. ABDOMEN: Soft, nontender, and obese. EXTREMITIES: Unremarkable. RECTUM: Perianal area, posterior large hemorrhoidal tag. Otherwise, perianal exam is unremarkable. Rectal exam without masses. Anoscopy reveals internal hemorrhoids, moderate. ASSESSMENT AND PLAN: Internal hemorrhoids, symptomatically bothersome despite optimal medical treatment. He has tried fiber. He has history of irritable bowel, has diarrhea and constipation at different times. He has been prescribed Proctofoam, did not fill it as it is too expensive. He has been using Xylocaine local topical perianal. Plan, PPH stapled hemorrhoidectomy under the same anesthesia of Dr. Hari Peterson performing a prostate lift. Job ID: [id number]
[2019-10-08 15:46] VITALS: BMI 31.6
[2019-10-17] MEDS ORDERED: Ketorolac Tromethamine 30 MG/ML VIAL ONE (06:25)
[2019-10-17] MEDS ORDERED: Levofloxacin 500 mg/D5W 100 ml Premix Bag ONE (06:25)
[2019-10-17] MEDS ORDERED: Acetaminophen 500 MG TAB ONE (06:25)
[2019-10-17] MEDS ORDERED: Fentanyl 100 MCG/2 ML VIAL ONE ×3 (06:27→11:19)
[2019-10-17] MEDS ORDERED: Meropenem 2 GM in Sodium Chloride 0.9% 100 ML IVPB SCH (06:30)
[2019-10-17] MEDS ORDERED: Lidocaine 1% w/Epinephrine 1:100K 20 ML VIAL ONE (07:09)
[2019-10-17] MEDS ORDERED: Bupivacaine PF 0.5% 30 ML VIAL ONE (07:09)
[2019-10-17] MEDS ORDERED: Lidocaine 2% Jelly 5 ML TUBE ONE (07:10)
[2019-10-17] MEDS ORDERED: Famotidine/PF 20 mg/2ml Vial ONE (07:10)
[2019-10-17] MEDS ORDERED: B & O ONE (07:28)
[2019-10-17] MEDS ORDERED: Midazolam HCl 2 mg/2 ml Vial ONE (08:43)
[2019-10-17] MEDS ORDERED: EPHEDRINE 25 MG/5 ML SYRINGE ONE ×2 (09:44→09:49)
[2019-10-17] MEDS ORDERED: PHENYLEPHRINE-NS 100 MCG/ML 10 ML SYRINGE ONE ×2 (09:44→09:49)
[2019-10-17] MEDS ORDERED: Glycopyrrolate 0.2 MG/ML 5 ML SYRINGE ONE (09:48)
[2019-10-17] MEDS ORDERED: Ondansetron PF 4 MG/2 ML Vial ONE (09:49)
[2019-10-17] MEDS ORDERED: Rocuronium Bromide 10 MG/ML (10ML VIAL) ONE (09:49)
[2019-10-17] MEDS ORDERED: Lidocaine 1% PF 5 ML VIAL ONE (09:49)
[2019-10-17] MEDS ORDERED: Dexamethasone 20 MG/5 ML VIAL ONE (09:49)
[2019-10-17] MEDS ORDERED: diphenhydrAMINE 50 MG/ML VIAL ONE (09:49)
[2019-10-17] MEDS ORDERED: PROPOFOL 200 MG/20 ML VIAL ONE (09:49)
--- NOTE | 2019-10-17 10:27 | OP ---
DATE OF PROCEDURE: 10/17/2019 SERVICE: Urology. PREOPERATIVE DIAGNOSIS: Benign prostatic hyperplasia with urinary symptoms and history of bladder cancer. POSTOPERATIVE DIAGNOSIS: Benign prostatic hyperplasia with lower urinary symptoms and history of bladder cancer. PROCEDURE PERFORMED: Cystoscopy with UroLift, 8 implants. INDICATIONS FOR PROCEDURE: Mr. Mendoza is a 58-year-old white male with a history of BPH with lower urinary tract symptoms as well as a history of bladder cancer. He also has hemorrhoids. He is coming in now for UroLift implantation along with cystoscopy for his bladder cancer surveillance. He will have a combined procedure with Dr. Sena for hemorrhoidectomy, which will be dictated separately. We have discussed the UroLift procedure in detail along with all risks and benefits and he has agreed to proceed forward. DESCRIPTION OF PROCEDURE: After identification of armband and verification of consent, the patient was brought back to the operating room. He underwent general anesthesia with endotracheal intubation. He was then placed in dorsal lithotomy position and prepped and draped in usual sterile fashion. After appropriate time-out, a lubricated 21-Qatari rigid cystoscope was introduced per urethra into the bladder. A full cystoscopy was performed, which demonstrated both ureters in orthotopic location with clear efflux of urine. There were no tumors, mucosal abnormalities, or stones noted within the bladder. There was grade 1 trabeculation. No diverticula or cellules. The prostate was hypertrophic and previously had been described an outpatient cystoscopy. The visual obturator was switched out for the UroLift implantation device. The initial implant was placed at the patient's left proximal prostate by positioning the UroLift device approximately 1.5 to 2 cm proximal to the bladder neck. Lateral compression and anterior compression were performed about 20 degrees until there was adequate compression at which point, the safety was released and the Nitinol needle deployed. Attention was set with a marti trigger to deploy the capsular tabs and then the UroLift device advanced forward until the white line was in the keyhole at which point, the blue release was used to deploy the urethral end piece. This resulted in nice lateral compression of the prostate. This was then repeated at the patient's right proximal prostate and again at the apex on both sides. This resulted in nice opening of the prostate channel, but there was still a fairly large median lobe and cat-eye effect with drooping of the anterior prostate. An implant was used on the median lobe to move it to the right by sweeping the prostate laterally and then using the needle to hold the median lobe until an implant could be deployed. This resulted in complete removal of the median lobe. For the anterior sagging, a device was placed on the left anterolateral aspect of the prostate to lift the prostate up in this direction, which resulted in the majority of the cat-eye effect disappearing. There were 2 additional lobes noted very distally near the verumontanum, which I felt may potentially pose some element of obstruction. Therefore, 2 additional implants were placed at this location on the left and right side. Upon completion, the prostate was wide open. There was a good channel throughout the prostate. The bladder was left full, and the cystoscope removed. An 18-Qatari Daly catheter was placed into the patient's bladder with 10 mL of sterile water placed into the balloon. The patient was then taken out of positioning and then moved to another operating room, where Dr. Sena will perform his hemorrhoidectomy and a separate operative note will be dictated for that portion of procedure. For my portion of procedure; COMPLICATIONS: None. ESTIMATED BLOOD LOSS: Minimal. RETAINED TUBES AND DRAINS: An 18-Qatari Daly catheter. SPECIMENS: None. IMPLANTS USED: Eight. DISPOSITION: The patient will go and get his hemorrhoidectomy performed afterwards. He should be able to undergo a void trial in Day Stay so long as his urine is not excessively bloody and his care handled on outpatient basis thereafter. Job ID: [id number]
[2019-10-17] MEDS ORDERED: SUGAMMADEX SODIUM 200 MG/2 ML VIAL ONE (10:33)
[2019-10-17] MEDS ORDERED: Phenazopyridine HCl 97.5 MG TABLET ONE (11:07)
[2019-10-17] MEDS ORDERED: Oxybutynin 5 MG TAB ONE (11:07)
[2019-10-17] MEDS ORDERED: traMADol HCl 50 MG TAB ONE (14:25)
--- NOTE | 2019-10-17 16:26 | OP ---
DATE OF PROCEDURE: 10/17/2019 PREOPERATIVE DIAGNOSES: Prolapsed hemorrhoids, symptomatic, refractory to medical care, benign prostatic hyperplasia. PROCEDURE PERFORMED: PPH-stapled hemorrhoidectomy with excision of a single posterior external hemorrhoidal tag. ANESTHESIA: General, local of 0.5% Marcaine 30 mL mixed with 1% Xylocaine with epinephrine 20 mL. Note: Dr. Peterson performed UroLift, same anesthetic prior. DESCRIPTION OF PROCEDURE: The patient was taken to the operating room, where after Dr. Peterson completed the patient's UroLift, the patient was placed under general anesthesia in the prone position. Buttocks prepared with Betadine and draped in the routine fashion. Anus was dilated with anal dilator and then the obturator and PPH stapling plastic device held in place with 4-quadrant sutures of 2-0 silk to the skin. Obturator removed. Suture placement device placed high in the rectum well above the dentate line. A pursestring suture of 2-0 Prolene was placed circumferentially. Stapling device inserted. Sutures brought out to the side holes. They were not tied. Stapler properly positioned well above the dentate line, approximated with a torque fire range, pause for 30 seconds, then stapled, removed . The staple line was complete, circumferential and hemostasis was gained with cautery and 3-0 chromic [id number] sutures. Good hemostasis was noted. Gelfoam with Xylocaine jelly applied. External hemorrhoidal tag noted posteriorly, excised and closed with 3-0 chromic locking suture. Local anesthetic was infiltrated about this area. The patient tolerated the procedure well. Job ID: [id number]
== END 2019-10-17 17:50 | disposition home or self-care (01) ==
LOC: SDC 06:06
PROVIDERS: ATTEND Urology
PROC: 0T7D8DZ Dilation of Urethra with Intraluminal Device, Via Natural or Artificial Opening Endoscopic (ICD-10-PCS; principal; 2019-10-17)
PROC: 06BY0ZC Excision of Hemorrhoidal Plexus, Open Approach (ICD-10-PCS; principal; 2019-10-17)
DX: K64.8 Other hemorrhoids (principal); K64.4 Residual hemorrhoidal skin tags; N40.1 Benign prostatic hyperplasia with lower urinary tract symptoms; G89.29 Other chronic pain; M54.9 Dorsalgia, unspecified; F17.210 Nicotine dependence, cigarettes, uncomplicated; N32.89 Other specified disorders of bladder; Z98.890 Other specified postprocedural states; Z79.899 Other long term (current) drug therapy; Z88.5 Allergy status to narcotic agent; Z88.8 Allergy status to other drugs, medicaments and biological substances; Z85.51 Personal history of malignant neoplasm of bladder
CPT/HCPCS: C1889; J1100; J1200; J1885; J1956; J2001; J2185; J2250; J2405; J2704; J3010; J3490; S0020; S0028

== ENCOUNTER 2020-03-03 06:16 | Outpatient (CLI) | payer OTHER ==
[2020-03-03 16:31] LABS: #Eosinphils 0.2 thou/uL (0.0-0.7); #Lymphocytes 2.4 thou/uL (1.20-3.40); #Monocytes 0.4 thou/uL (0.11-0.59); #Neutrophils 2.3 thou/uL (1.40-6.50); %Basophils 0.9 % (0.0-1.0); %Eosinophils 3.8 % (0.0-10.0); %Lymphocytes 44.7 % (21.0-51.0); %Monocytes 6.8 % (0.0-10.0); %Neutrophils 43.8 % (42.0-75.0); Hemoglobin 12.3 g/dL (14.0-18.0); Mean Corpuscular HGB CONC 33.4 g/dL (32.0-36.0); Mean Corpuscular Hemoglobin 28.7 pg (27.0-31.0); Mean Corpuscular Volume 86.1 fL (78.0-98.0); Mean Platelet Volume 9.4 fL (7.4-10.4); Platelet Count 225 thou/uL (130-400); RBC Distribution Width 12.4 % (11.5-14.5); Red Blood Cell (RBC) Count 4.27 mill/uL (4.70-6.10); White Blood Cell (WBC) Count 5.3 thou/uL (4.8-10.8)
[2020-03-03 17:29] LABS: Anion Gap 13 mmol/L (10-20); BUN (Urea Nitrogen) 14 mg/dL (8.4-25.7); Calc. Creatinine Clearance 0 mL/min (70-130); Calcium 9.2 mg/dL (7.8-10.44); Carbon Dioxide 23 mmol/L (22-29); Chloride 108 mmol/L (98-107); Estimated GFR-MDRD 86; Glucose 103 mg/dL (70-105); Potassium 4.3 mmol/L (3.5-5.1); Sodium 140 mmol/L (136-145)
[2020-03-04 14:23] LABS: SARS-CoV-2 MS2 Positive; SARS-CoV-2 N Gene Negative; SARS-CoV-2 S Gene Negative; SARS-CoV-2 by NAA Not Detected (NotDetected); SARS-CoV-2 orf1ab Negative
== END 2020-03-03 06:17 | disposition home or self-care (01) ==
LOC: LABBT 06:16
PROVIDERS: ATTEND Thoracic Surgery (Cardiothoracic Vascular Surgery)
DX: Z01.818 Encounter for other preprocedural examination (principal); Z11.59 Encounter for screening for other viral diseases; I65.21 Occlusion and stenosis of right carotid artery
CPT/HCPCS: 80048; 85025; 87635; 93005; 93010; U0003

== ENCOUNTER 2020-03-03 13:15 | Inpatient (IN) | payer OTHER ==
[2020-03-03 10:42] VITALS: BMI 30.8
[2020-03-08] MEDS ORDERED: Nitroglycerin 50 MG/250 ML BOT 250 ML ONE (07:21)
[2020-03-08] MEDS ORDERED: Fentanyl 100 MCG/2 ML VIAL ONE ×3 (07:21→14:33)
[2020-03-08] MEDS ORDERED: Midazolam HCl 2 mg/2 ml Vial ONE (07:21)
[2020-03-08] MEDS ORDERED: Phenylephrine 10 MG/ML VIAL ONE (07:22)
[2020-03-08] MEDS ORDERED: Bupivacaine PF 0.5% 30 ML VIAL ONE (07:23)
[2020-03-08] MEDS ORDERED: Protamine Sulfate 50 MG/5 ML VIAL ONE ×2 (07:23→09:39)
[2020-03-08] MEDS ORDERED: EPINEPHrine 1 MG/ML AMP ONE (07:23)
[2020-03-08] MEDS ORDERED: Heparin 5,000 UNITS/ML VIAL ONE (07:23)
[2020-03-08] MEDS ORDERED: Promethazine HCl 25 MG/ML VIAL SLOW IVP PRN (07:44)
[2020-03-08] MEDS ORDERED: Promethazine HCl 25 MG/ML VIAL IM PRN ×2 (07:44→10:22)
[2020-03-08] MEDS ORDERED: Ondansetron HCl/PF 4 MG/2 ML Vial IVP PRN (07:44)
[2020-03-08] MEDS ORDERED: Ondansetron PF 4 MG/2 ML Vial ONE ×2 (08:06→09:42)
[2020-03-08] MEDS ORDERED: Famotidine/PF 20 mg/2ml Vial ONE (08:06)
[2020-03-08] MEDS ORDERED: SUGAMMADEX SODIUM 500 MG/5 ML VIAL ONE (08:12)
[2020-03-08] MEDS ORDERED: EPINEPHrine 1 MG/10 ML Abboject SYRINGE ONE (08:58)
[2020-03-08] MEDS ORDERED: Heparin 10,000 UNITS/1 ML VIAL ONE (09:12)
[2020-03-08] MEDS ORDERED: PROPOFOL 200 MG/20 ML VIAL ONE (09:42)
[2020-03-08] MEDS ORDERED: Rocuronium Bromide 10 MG/ML (10ML VIAL) ONE (09:42)
[2020-03-08] MEDS ORDERED: Lidocaine 1% PF 5 ML VIAL ONE (09:42)
[2020-03-08] MEDS ORDERED: hydrALAZINE 20 MG/ML VIAL SLOW IVP PRN (10:22)
[2020-03-08] MEDS ORDERED: tiZANidine HCl 4 MG TAB PO PRN (10:22)
[2020-03-08] MEDS ORDERED: Phenylephrine 10 MG/NS 250 ML 250 ML IVPB PRN (10:22)
[2020-03-08] MEDS ORDERED: Acetaminophen 325 MG TAB PO PRN (10:22)
[2020-03-08] MEDS ORDERED: Sodium Chloride 0.9% 1,000 ML IV SCH (10:22)
[2020-03-08] MEDS ORDERED: traMADol HCl 50 MG TAB PO PRN (10:22)
[2020-03-08] MEDS ORDERED: Ondansetron PF 4 MG/2 ML Vial IVP PRN (10:22)
[2020-03-08] MEDS ORDERED: Acetaminophen 500 MG TAB PO PRN (10:22)
[2020-03-08] MEDS ORDERED: Fentanyl 100 MCG/2 ML VIAL SLOW IVP PRN ×2 (10:22)
[2020-03-08] MEDS ORDERED: Gabapentin 400 MG CAP PO PRN (11:30)
--- NOTE | 2020-03-08 11:32 | OP ---
DATE OF PROCEDURE: 03/08/2020 PREOPERATIVE DIAGNOSIS: Symptomatic right carotid stenosis. POSTOPERATIVE DIAGNOSIS: Symptomatic right carotid stenosis. PROCEDURES PERFORMED: 1. Ultrasound-guided right femoral vein access. 2. Transcarotid artery revascularisation with a 10 x 40 Enroute stent. FLY TIER: Marc Finn MD ANESTHESIA: General endotracheal, Dr. Yogi Romero. ESTIMATED BLOOD LOSS: Less than 50. CONTRAST: 15 mL. FLUORO TIME: 2 minutes 53 seconds. DESCRIPTION OF PROCEDURE: After consent was obtained, the patient was brought to the operating room and placed in supine position on the operating room table. Appropriate central line and monitors were placed and general endotracheal anesthesia was induced. Right neck was interrogated with ultrasound and the carotid artery marked at the clavicle. Right groin were prepped and draped in usual sterile fashion. Using ultrasound guidance, the right femoral vein was cannulated and a 7-Emirati sheath placed. A skin incision was made over the carotid artery and the common carotid artery was controlled with umbilical tape. The patient was systemically heparinized. A 5-0 Prolene pursestring was placed in the common carotid artery. Common carotid artery was accessed and a microwire placed followed by the microsheath. Hand-injected arteriogram was performed delineating carotid bifurcation. Microwire was then advanced into the external carotid artery followed by the sheath. The wire was then exchanged for the Stiff J-wire. This was positioned within the external carotid artery. The stent placement sheath was then placed and the Stiff wire removed. After an ACT of greater than 200, the common carotid artery was clamped. The retrograde flow was confirmed from carotid into the femoral sheath. The microwire was advanced through the carotid bifurcation into the internal carotid artery at the level of the base of skull. Arteriogram was performed localizing the bifurcation disease. Bifurcation was then dilated with a 5 x 2 balloon taken to 12 mmHg. A 10 x 40 stent was then positioned with its tip distal to the disease and deployed. This was posted with a 5 x 2 balloon at the bifurcation. Followup angiogram and two planes showed excellent result. Guidewire was removed. Common carotid artery was unclamped. The tubing was cleared of blood. Protamine was administered. Femoral sheath was removed and pressure held for hemostasis. Carotid sheath was removed and its pursestring secured. A second [id number] stitch was placed for hemostasis. The wound was injected with 0.5% Marcaine mixed with Decadron. Wounds were irrigated, closed in layers and Dermabond applied to skin. The patient was awakened in the operating room, neurologically unchanged. Job ID: [id number] MTDD
[2020-03-08] MEDS ORDERED: Pancrelipase DR 12,000 1 CAP PO PRN (12:00)
[2020-03-08] MEDS ORDERED: Phenylephrine 40 MG in Sodium Chloride 0.9% 250 ML 250 ML IVPB PRN (15:08)
[2020-03-08] MEDS ORDERED: Phenylephrine 40 MG in Sodium Chloride 0.9% 250 ML 246 ML IVPB PRN (15:15)
[2020-03-08] MEDS: chlordiazePOXIDE/Clidinium Bromide Capsule PO SCH (15:40)
[2020-03-08] MEDS: CEFAZOLIN 2 GM in Premix Bag 1 BAG IVPB SCH (17:15)
[2020-03-08] MEDS ORDERED: Ezetimibe 10 MG TAB PO SCH (21:00)
[2020-03-08] MEDS ORDERED: Atorvastatin Calcium 10 MG TAB PO SCH (21:00)
[2020-03-08] MEDS ORDERED: Aspirin 81 mg Enteric Coated Tablet PO SCH (21:00)
[2020-03-08] MEDS ORDERED: Montelukast Sodium 10 mg Tablet PO SCH (21:00)
[2020-03-08] MEDS: Pancrelipase DR 12,000 1 CAP PO SCH (21:05)
[2020-03-09] MEDS: FLUoxetine HCl 10 MG CAP PO SCH ×2 (00:14→07:28)
[2020-03-09] MEDS: CEFAZOLIN 2 GM in Premix Bag 1 BAG IVPB SCH ×2 (00:17→07:32)
[2020-03-09] MEDS ORDERED: Acetaminophen 325 MG TAB ONE (01:02)
[2020-03-09] MEDS ORDERED: traMADol HCl 50 MG TAB ONE (01:03)
[2020-03-09] MEDS ORDERED: Levothyroxine Sodium 100 MCG TAB PO SCH (06:00)
--- NOTE | 2020-03-09 06:44 | DIS ---
DATE OF ADMISSION: 03/08/2020 DATE OF DISCHARGE: 03/09/2020 DIAGNOSIS: Asymptomatic right carotid stenosis. PROCEDURE: Right TCAR with a 10 x 40 Enroute stent. DESCRIPTION OF HOSPITAL STAY: Mr. Mendoza was admitted for elective right carotid TCAR procedure. He has done well postoperatively. He required alpha agent postoperatively for approximately 12 hours, but is currently off phenylephrine. He is being discharged home in good condition to follow up with me in 2 weeks. DISCHARGE MEDICATIONS: Unchanged from admission. Job ID: [id number]
[2020-03-09] MEDS: Pancrelipase DR 12,000 1 CAP PO SCH (07:00)
[2020-03-09] MEDS: chlordiazePOXIDE/Clidinium Bromide Capsule PO SCH (07:26)
[2020-03-09] MEDS ORDERED: Carvedilol 25 MG TAB PO SCH (08:00)
[2020-03-09] MEDS ORDERED: Clopidogrel Bisulfate 75 MG TAB PO SCH (08:00)
== END 2020-03-09 08:50 | disposition home or self-care (01) | DRG 36 ==
LOC: SURG A 03-08 07:08
PROVIDERS: ADMIT Thoracic Surgery (Cardiothoracic Vascular Surgery); ATTEND Thoracic Surgery (Cardiothoracic Vascular Surgery)
PROC: 037K3DZ Dilation of Right Internal Carotid Artery with Intraluminal Device, Percutaneous Approach (ICD-10-PCS; principal; 2020-03-08)
DX: I65.21 Occlusion and stenosis of right carotid artery (principal); I10 Essential (primary) hypertension; E03.9 Hypothyroidism, unspecified; K21.9 Gastro-esophageal reflux disease without esophagitis; Z79.890 Hormone replacement therapy; Z79.899 Other long term (current) drug therapy; Z87.891 Personal history of nicotine dependence; Z88.5 Allergy status to narcotic agent; Z88.8 Allergy status to other drugs, medicaments and biological substances
CPT/HCPCS: 76000; C1725; C1876; J0171; J0690; J1644; J2250; J2370; J2405; J2704; J2720; J3010; S0020; S0028

== ENCOUNTER 2021-04-21 07:19 | Day surgery (SDC) | payer OTHER ==
[2021-04-13 14:21] VITALS: BMI 30.8
[2021-04-21 08:14] VITALS: TEMP 97.5
[2021-04-21 09:34] VITALS: BP 129/86
== END 2021-04-21 09:41 | disposition home or self-care (01) ==
LOC: RAD 07:19
PROVIDERS: ATTEND Neurological Surgery
PROC: B02B1ZZ Computerized Tomography (CT Scan) of Spinal Cord using Low Osmolar Contrast (ICD-10-PCS; principal; 2021-04-21)
DX: M48.061 Spinal stenosis, lumbar region without neurogenic claudication (principal); M48.07 Spinal stenosis, lumbosacral region; M25.78 Osteophyte, vertebrae; M47.816 Spondylosis without myelopathy or radiculopathy, lumbar region; M51.36 Other intervertebral disc degeneration, lumbar region; K51.90 Ulcerative colitis, unspecified, without complications; N40.0 Benign prostatic hyperplasia without lower urinary tract symptoms; Z79.1 Long term (current) use of non-steroidal anti-inflammatories (NSAID); Z79.82 Long term (current) use of aspirin; Z79.899 Other long term (current) drug therapy; Z98.1 Arthrodesis status; M25.551 Pain in right hip; M25.552 Pain in left hip
CPT/HCPCS: 72132; 77002

== ENCOUNTER 2021-07-04 17:02 | Outpatient (CLI) | payer OTHER ==
[2021-07-04 18:01] LABS: Bilirubin Neg (Negative); Blood, Urine Negative (Negative); Clarity Clear (Clear); Glucose, Urine (Dipstick) Normal (Negative); Ketone, Urine Negative (Negative); Leukocyte Negative (Negative); Nitrite Negative (Negative); Protein, Urine (Dipstick) Negative (Neg-Trace); Specific Gravity, Urine 1.005 (1.002-1.036); Urobilinogen Normal mg/dL (Less than 2)
[2021-07-04 18:06] LABS: Hemoglobin 13.7 g/dL (13.5-17.5); Mean Corpuscular HGB CONC 32.9 g/dL (32.0-36.0); Mean Corpuscular Hemoglobin 29.5 pg (27.0-33.0); Mean Corpuscular Volume 89.7 fl (81.2-95.1); Mean Platelet Volume 10.8 fl (7.4-10.4); Platelet Count 261 10x3/uL (150-450); RBC Distribution Width 12.7 % (11.5-14.5); Red Blood Cell (RBC) Count 4.64 10x6/uL (4.32-5.72); White Blood Cell (WBC) Count 11.7 10x3/uL (3.5-10.5)
[2021-07-04 18:08] LABS: Bacteria/HPF Rare-Few HPF (None Seen); RBC/HPF None Seen HPF (0-3); Squamous Epithelial 0-3 HPF (0-3); WBC/HPF 0-3 HPF (0-3)
[2021-07-04 18:21] LABS: PTT 28.5 sec (22.0-33.0); Prothrombin Time 10.7 sec (9.5-12.1)
[2021-07-04 18:23] LABS: Anion Gap 16 mmol/L (10-20); BUN (Urea Nitrogen) 12 mg/dL (8.4-25.7); Calc. Creatinine Clearance 0 mL/min (70-130); Calcium 9.5 mg/dL (7.8-10.44); Carbon Dioxide 27 mmol/L (22-29); Chloride 104 mmol/L (98-107); Glucose 92 mg/dL (70-105); Potassium 4.2 mmol/L (3.5-5.1); Sodium 143 mmol/L (136-145)
[2021-07-05 09:15] LABS: SARS-CoV-2 PCR by NAA Not Detected (NotDetected)
== END 2021-07-04 17:03 | disposition home or self-care (01) ==
LOC: LABBT 17:02
PROVIDERS: ATTEND Urology
DX: Z01.812 Encounter for preprocedural laboratory examination (principal); N40.1 Benign prostatic hyperplasia with lower urinary tract symptoms; R97.20 Elevated prostate specific antigen [PSA]; Z20.822 Contact with and (suspected) exposure to COVID-19
CPT/HCPCS: 80048; 81001; 85027; 85610; 85730; 87086; U0003; U0005

== ENCOUNTER 2021-07-07 07:55 | Day surgery (SDC) | payer OTHER ==
[2021-07-05 10:56] VITALS: BMI 31.2
[2021-07-07] MEDS ORDERED: cefTRIAXone\\ROCEPHIN 1 GM VIAL ONE (09:40)
[2021-07-07] MEDS ORDERED: Sodium Chloride 0.9% 100 ML ONE (09:40)
[2021-07-07] MEDS ORDERED: Ketamine 50 MG/ML (10ML VIAL) ONE (10:04)
[2021-07-07] MEDS ORDERED: Midazolam HCl 2 mg/2 ml Vial ONE (10:04)
[2021-07-07] MEDS ORDERED: Fentanyl 100 MCG/2 ML VIAL ONE (10:04)
[2021-07-07] MEDS ORDERED: Propofol 500 MG/50 ML VIAL ONE (10:04)
== END 2021-07-07 12:08 | disposition home or self-care (01) ==
LOC: SDC 07:55
PROVIDERS: ATTEND Urology
PROC: 0VB03ZX Excision of Prostate, Percutaneous Approach, Diagnostic (ICD-10-PCS; principal; 2021-07-07)
DX: N41.4 Granulomatous prostatitis (principal); N40.1 Benign prostatic hyperplasia with lower urinary tract symptoms; R39.11 Hesitancy of micturition; R39.15 Urgency of urination; N52.01 Erectile dysfunction due to arterial insufficiency; H54.62 Unqualified visual loss, left eye, normal vision right eye; Z85.51 Personal history of malignant neoplasm of bladder; Z87.891 Personal history of nicotine dependence; Z79.82 Long term (current) use of aspirin; Z79.899 Other long term (current) drug therapy; Z88.5 Allergy status to narcotic agent; Z88.8 Allergy status to other drugs, medicaments and biological substances; Z95.0 Presence of cardiac pacemaker; Z98.1 Arthrodesis status
CPT/HCPCS: 88305; J0696; J2250; J2704; J3010; J3490

== ENCOUNTER 2022-11-13 14:24 | Outpatient (CLI) | payer OTHER ==
[2022-11-13 15:20] LABS: Hemoglobin 13.7 g/dL (13.5-17.5); Mean Corpuscular HGB CONC 33.7 g/dL (32.0-36.0); Mean Platelet Volume 10.8 fl (7.4-10.4); Platelet Count 228 10x3/uL (150-450); RBC Distribution Width 12.4 % (11.5-14.5); Red Blood Cell (RBC) Count 4.56 10x6/uL (4.32-5.72); White Blood Cell (WBC) Count 7.4 10x3/uL (3.5-10.5)
[2022-11-13 15:45] LABS: Anion Gap 14 mmol/L (10-20); BUN (Urea Nitrogen) 18 mg/dL (8.4-25.7); Calc. Creatinine Clearance 0 mL/min (70-130); Calcium 9.5 mg/dL (7.8-10.44); Carbon Dioxide 23 mmol/L (23-31); Chloride 108 mmol/L (98-107); Estimated GFR 92; Glucose 92 mg/dL (80-115); Potassium 4.7 mmol/L (3.5-5.1); Sodium 140 mmol/L (136-145)
== END 2022-11-13 14:25 | disposition home or self-care (01) ==
LOC: LABBT 14:24
PROVIDERS: ATTEND Neurological Surgery
DX: Z01.818 Encounter for other preprocedural examination (principal); M54.12 Radiculopathy, cervical region
CPT/HCPCS: 80048; 85027; 93005; 93010

== ENCOUNTER 2022-11-13 14:30 | Inpatient (IN) | payer OTHER ==
[2022-11-16 10:19] VITALS: BMI 30.8
[2022-11-20] MEDS ORDERED: ePHEDrine Sulfate 50 MG/10 ML VIAL ONE (10:00)
[2022-11-20] MEDS ORDERED: Rocuronium Bromide 10 MG/ML (10ML VIAL) ONE (10:00)
[2022-11-20] MEDS ORDERED: Ondansetron PF 4 MG/2 ML Vial ONE (10:00)
[2022-11-20] MEDS ORDERED: Ketorolac Tromethamine 30 MG/ML VIAL ONE (10:00)
[2022-11-20] MEDS ORDERED: Dexamethasone 20 MG/5 ML VIAL ONE (10:00)
[2022-11-20] MEDS ORDERED: PROPOFOL 200 MG/20 ML VIAL ONE (10:00)
[2022-11-20] MEDS ORDERED: Lidocaine 1% PF 5 ML VIAL ONE (10:00)
[2022-11-20] MEDS ORDERED: Midazolam HCl 2 mg/2 ml Vial ONE (10:24)
[2022-11-20] MEDS ORDERED: Fentanyl 250 MCG/5 ML VIAL ONE (10:34)
[2022-11-20] MEDS ORDERED: CEFAZOLIN 2 GM VIAL ONE (10:34)
[2022-11-20] MEDS ORDERED: Sodium Chloride 0.9% 100 ML ONE (10:34)
[2022-11-20] MEDS ORDERED: SUGAMMADEX SODIUM 200 MG/2 ML VIAL ONE (10:48)
[2022-11-20] MEDS ORDERED: Promethazine HCl 25 MG/ML VIAL IM PRN ×2 (12:00→12:17)
[2022-11-20] MEDS ORDERED: Morphine 2 MG/ML VIAL SLOW IVP PRN (12:00)
[2022-11-20] MEDS ORDERED: Acetaminophen 325 MG TAB PO PRN (12:00)
[2022-11-20] MEDS ORDERED: Cyclobenzaprine 10 MG TAB PO PRN (12:00)
[2022-11-20] MEDS ORDERED: Mag-Al 1200 mg/1200 mg/30 ML UDCUP PO PRN (12:00)
[2022-11-20] MEDS ORDERED: traMADol HCl 50 MG TAB PO PRN (12:00)
[2022-11-20] MEDS ORDERED: diphenhydrAMINE 50 MG/ML VIAL IVP PRN (12:00)
[2022-11-20] MEDS ORDERED: Promethazine 25 MG TAB PO PRN (12:00)
[2022-11-20] MEDS ORDERED: Ondansetron HCl/PF 4 MG/2 ML Vial IVP PRN (12:17)
[2022-11-20] MEDS ORDERED: HYDROmorphone 2 MG/ML VIAL SLOW IVP PRN (12:17)
[2022-11-20] MEDS ORDERED: Labetalol HCl 100 MG/20 ML VIAL SLOW IVP PRN (12:17)
[2022-11-20] MEDS ORDERED: fentaNYL PF 100 MCG/2 ML SYRINGE ONE (12:27)
[2022-11-20] MEDS ORDERED: tiZANidine HCl 4 MG TAB PO PRN (12:34)
[2022-11-20] MEDS ORDERED: Pregabalin 50 MG CAP PO PRN (12:36)
[2022-11-20] MEDS ORDERED: TADALAFIL 20 MG PO SCH (12:45)
[2022-11-20] MEDS ORDERED: fentaNYL 50 mcg/mL 1 mL Vial ONE ×2 (15:05→16:36)
[2022-11-20] MEDS ORDERED: HYDROmorphone 0.5 MG/0.5 ML SYRINGE ONE (15:49)
[2022-11-20] MEDS ORDERED: Labetalol HCl 100 MG/20 ML VIAL ONE (16:22)
[2022-11-20] MEDS: Carvedilol 25 MG TAB PO SCH (16:36)
[2022-11-20] MEDS: Sodium Chloride 0.9% 1,000 ML IV SCH (18:16)
[2022-11-20] MEDS: CEFAZOLIN 2 GM in Sodium Chloride 0.9% 100 ML IVPB SCH (18:31)
[2022-11-20] MEDS ORDERED: Atorvastatin Calcium 10 MG TAB PO SCH (21:00)
[2022-11-20] MEDS ORDERED: Montelukast Sodium 10 mg Tablet PO SCH ×2 (21:00)
[2022-11-20] MEDS ORDERED: Carvedilol 25 MG TAB PO SCH (21:00)
[2022-11-20] MEDS ORDERED: Ezetimibe 10 MG TAB PO SCH (21:00)
[2022-11-20] MEDS ORDERED: Levothyroxine Sodium 100 MCG TAB PO SCH (21:00)
[2022-11-20] MEDS ORDERED: buPROPion 75 MG TAB PO SCH (21:00)
[2022-11-20] MEDS ORDERED: AZELAIC ACID TOP SCH (21:00)
[2022-11-20] MEDS: traMADol HCl 50 MG TAB PO PRN (21:14)
[2022-11-20] MEDS: Bupropion 150 MG XL TAB PO SCH (21:15)
[2022-11-21 02:04] VITALS: TEMP 98.1
[2022-11-21] MEDS: CEFAZOLIN 2 GM in Sodium Chloride 0.9% 100 ML IVPB SCH ×2 (03:32→09:14)
[2022-11-21] MEDS: traMADol HCl 50 MG TAB PO PRN (03:38)
[2022-11-21] MEDS: Sodium Chloride 0.9% 1,000 ML IV SCH (03:38)
[2022-11-21] MEDS ORDERED: Levothyroxine Sodium 100 MCG TAB PO SCH (06:00)
[2022-11-21 07:42] VITALS: BP 129/72
[2022-11-21] MEDS: Bupropion 150 MG XL TAB PO SCH (08:07)
[2022-11-21] MEDS: Carvedilol 25 MG TAB PO SCH (08:07)
[2022-11-21] MEDS ORDERED: Multivitamin W/ Minerals 1 TAB PO SCH (09:00)
[2022-11-21] MEDS ORDERED: Hydrochlorothiazide 25 MG TAB PO SCH ×2 (09:00)
== END 2022-11-21 11:30 | disposition home or self-care (01) | DRG 473 ==
LOC: SURG A 11-20 07:28 → SJJU 11-20 17:33
PROVIDERS: ADMIT Neurological Surgery; ATTEND Neurological Surgery
PROC: 0RG10A0 Fusion of Cervical Vertebral Joint with Interbody Fusion Device, Anterior Approach, Anterior Column, Open Approach (ICD-10-PCS; principal; 2022-11-20)
PROC: 0RB30ZZ Excision of Cervical Vertebral Disc, Open Approach (ICD-10-PCS; 2022-11-20)
PROC: 0PP304Z Removal of Internal Fixation Device from Cervical Vertebra, Open Approach (ICD-10-PCS; 2022-11-20)
DX: M48.02 Spinal stenosis, cervical region (principal); M50.11 Cervical disc disorder with radiculopathy, high cervical region; I10 Essential (primary) hypertension; E78.5 Hyperlipidemia, unspecified; E03.9 Hypothyroidism, unspecified; K21.9 Gastro-esophageal reflux disease without esophagitis; G89.29 Other chronic pain; Z88.6 Allergy status to analgesic agent; Z88.5 Allergy status to narcotic agent; Z79.899 Other long term (current) drug therapy; Z79.82 Long term (current) use of aspirin; Z79.890 Hormone replacement therapy
CPT/HCPCS: C1713; C1776; J1100; J1170; J1885; J2250; J2405; J2704; J3010; J3490

== ENCOUNTER 2022-12-07 12:45 | Outpatient (CLI) | payer OTHER | END 2022-12-07 12:46 | disposition home or self-care (01) | LOC: TBSIIMAG 12:45 | PROVIDERS: ATTEND Neurological Surgery | DX: M54.12 Radiculopathy, cervical region (principal); Z98.1 Arthrodesis status | CPT/HCPCS: 72040 ==

== ENCOUNTER 2024-08-04 09:05 | Outpatient (CLI) | payer OTHER ==
[2024-08-04] MEDS ORDERED: Barium Sulfate 96% 176 GM BOT (xray ONLY) ONE (09:32)
[2024-08-04] MEDS ORDERED: E-Z-HD 98% W/W 340GM BOT (x-ray ONLY) ONE (09:32)
== END 2024-08-04 09:06 | disposition home or self-care (01) ==
LOC: RAD 09:05
PROVIDERS: ATTEND Specialist
DX: K21.9 Gastro-esophageal reflux disease without esophagitis (principal); K44.9 Diaphragmatic hernia without obstruction or gangrene
CPT/HCPCS: 74246